=== PATIENT | female | born 1955 | race Caucasian/White ===

== ENCOUNTER 2016-11-24 02:09 | Emergency (ER) | payer MEDICAID ==
[2016-11-24 02:57] LABS: BASOPHILS 0.5 % (0-2); EOSINOPHILS 4.2 % (0-7); HEMATOCRIT 42.9 % (36.0-48.0); HEMOGLOBIN 14.2 g/dL (12-16); IMMATURE GRANULOCYTES 0.4 % (0-5); LYMPHOCYTES 25.4 % (15-50); MCHC 33.1 g/dL (31.0-37.0); MCV 90.7 fL (80.0-100.0); MEAN PLATELET VOLUME 10.2 fL (7.4-10.4); MONOCYTES 9.1 % (2-11); NEUTROPHILS 60.4 % (40-80); RBC 4.73 10x6/uL (4.00-5.40); RDW 12.8 % (11.5-14.5); WBC 12.8 10x3/uL (4.8-10.8)
[2016-11-24 02:59] LABS: PLATELET COUNT 276 10x3/uL (130-400)
[2016-11-24 03:04] LABS: CALC OSMOLALITY 280 mosm/kg (275-300); CALCIUM 9.5 mg/dL (8.5-10.1); CARBON DIOXIDE 28.8 mmol/L (21.0-32.0); CHLORIDE - SERUM 102 mmol/L (98-107); CREATININE - SERUM 0.8 mg/dL (0.6-1.3); GLUCOSE 118 mg/dL (74-106); SODIUM 139 mmol/L (136-145); UREA NITROGEN 18 mg/dL (7-18); eGFR NON AFRICAN AMERICAN 77 mL/min (90-120)
== END 2016-11-24 03:57 | disposition home or self-care (01) ==
LOC: D.ER 02:09
PROVIDERS: Emergency Medicine
DX: I10 Essential (primary) hypertension (principal); R51 Headache; E03.9 Hypothyroidism, unspecified

== ENCOUNTER 2019-12-24 09:00 | Outpatient (CLI) | payer MEDICARE | END 2019-12-24 10:00 | disposition home or self-care (01) | LOC: D.MAMMO 09:00 | PROVIDERS: ATTEND Family Medicine | DX: Z12.31 Encounter for screening mammogram for malignant neoplasm of breast (principal) ==